=== PATIENT | male | born 1965 | race Caucasian/White ===

== ENCOUNTER → 2024-04-17 | Outpatient (CLI) | payer MEDICAID, SELFPAY | END | disposition home or self-care (01) | PROVIDERS: PCP Internal Medicine; Referring Provider Internal Medicine; Visit Provider Student in an Organized Health Care Education/Training Program | DX: L89.314 Pressure ulcer of right buttock, stage 4 (principal); L89.154 Pressure ulcer of sacral region, stage 4; S36.438A Laceration of other part of small intestine, initial encounter; X58.XXXA Exposure to other specified factors, initial encounter; G82.20 Paraplegia, unspecified | CPT/HCPCS: 11042; A9270 ==

== ENCOUNTER → 2024-05-29 | Outpatient (CLI) | payer MEDICAID, SELFPAY | END | disposition home or self-care (01) | PROVIDERS: PCP Internal Medicine; Referring Provider Internal Medicine; Visit Provider Surgery | DX: L89.154 Pressure ulcer of sacral region, stage 4 (principal); S36.438A Laceration of other part of small intestine, initial encounter; X58.XXXA Exposure to other specified factors, initial encounter; G82.20 Paraplegia, unspecified | CPT/HCPCS: 11042; A9270 ==

== ENCOUNTER → 2024-06-26 | Outpatient (CLI) | payer MEDICAID, SELFPAY | END | disposition home or self-care (01) | PROVIDERS: PCP Internal Medicine; Referring Provider Internal Medicine; Visit Provider Student in an Organized Health Care Education/Training Program | DX: L89.314 Pressure ulcer of right buttock, stage 4 (principal); L89.154 Pressure ulcer of sacral region, stage 4; S36.438A Laceration of other part of small intestine, initial encounter; X58.XXXA Exposure to other specified factors, initial encounter; G82.20 Paraplegia, unspecified | CPT/HCPCS: 97597; A9270 ==

== ENCOUNTER → 2024-07-24 | Outpatient (CLI) | payer MEDICAID, SELFPAY | END | disposition home or self-care (01) | LOC: SWHD 14:19 | PROVIDERS: PCP Internal Medicine; Referring Provider Internal Medicine; Visit Provider Surgery | DX: L89.314 Pressure ulcer of right buttock, stage 4 (principal); L89.154 Pressure ulcer of sacral region, stage 4; S36.438A Laceration of other part of small intestine, initial encounter; X58.XXXA Exposure to other specified factors, initial encounter; G82.20 Paraplegia, unspecified | CPT/HCPCS: 97597 ==

== ENCOUNTER → 2024-09-04 | Outpatient (CLI) | payer MEDICAID, SELFPAY | END | disposition home or self-care (01) | PROVIDERS: PCP Internal Medicine; Referring Provider Internal Medicine; Visit Provider Surgery | DX: L89.314 Pressure ulcer of right buttock, stage 4 (principal); L89.154 Pressure ulcer of sacral region, stage 4; S36.438A Laceration of other part of small intestine, initial encounter; X58.XXXA Exposure to other specified factors, initial encounter; G82.20 Paraplegia, unspecified | CPT/HCPCS: 11042 ==

== ENCOUNTER → 2024-09-25 | Outpatient (CLI) | payer MEDICAID, SELFPAY | END | disposition home or self-care (01) | PROVIDERS: PCP Internal Medicine; Referring Provider Internal Medicine; Visit Provider Student in an Organized Health Care Education/Training Program | DX: L89.314 Pressure ulcer of right buttock, stage 4 (principal); L89.154 Pressure ulcer of sacral region, stage 4; S36.438A Laceration of other part of small intestine, initial encounter; X58.XXXA Exposure to other specified factors, initial encounter; G82.20 Paraplegia, unspecified | CPT/HCPCS: 11042 ==

== ENCOUNTER → 2024-10-23 | Outpatient (CLI) | payer MEDICAID, SELFPAY | END | disposition home or self-care (01) | LOC: SWHD 14:21 | PROVIDERS: PCP Internal Medicine; Referring Provider Internal Medicine; Visit Provider Student in an Organized Health Care Education/Training Program | DX: L89.314 Pressure ulcer of right buttock, stage 4 (principal); L89.154 Pressure ulcer of sacral region, stage 4; S36.438A Laceration of other part of small intestine, initial encounter; X58.XXXA Exposure to other specified factors, initial encounter; G82.20 Paraplegia, unspecified; N19 Unspecified kidney failure; Z99.2 Dependence on renal dialysis | CPT/HCPCS: 11042 ==

== ENCOUNTER → 2024-11-20 | Outpatient (CLI) | payer MEDICAID, SELFPAY | END | disposition home or self-care (01) | LOC: SWHD 13:31 | PROVIDERS: PCP Internal Medicine; Referring Provider Internal Medicine; Visit Provider Student in an Organized Health Care Education/Training Program | DX: L89.314 Pressure ulcer of right buttock, stage 4 (principal); L89.154 Pressure ulcer of sacral region, stage 4; S36.438A Laceration of other part of small intestine, initial encounter; X58.XXXA Exposure to other specified factors, initial encounter; G82.20 Paraplegia, unspecified; N19 Unspecified kidney failure; Z99.2 Dependence on renal dialysis | CPT/HCPCS: 11042; A9270 ==

== ENCOUNTER → 2025-01-29 | Outpatient (CLI) | payer MEDICAID, SELFPAY | END | disposition home or self-care (01) | LOC: SWHD 14:38 | PROVIDERS: PCP Internal Medicine; Referring Provider Internal Medicine; Visit Provider Student in an Organized Health Care Education/Training Program | DX: L89.314 Pressure ulcer of right buttock, stage 4 (principal); L89.154 Pressure ulcer of sacral region, stage 4; S36.438A Laceration of other part of small intestine, initial encounter; X58.XXXA Exposure to other specified factors, initial encounter; G82.20 Paraplegia, unspecified; Z99.2 Dependence on renal dialysis; N19 Unspecified kidney failure | CPT/HCPCS: 11042; A9270 ==

== ENCOUNTER → 2025-02-26 | Outpatient (CLI) | payer MEDICAID, SELFPAY | END | disposition home or self-care (01) | LOC: SWHD 14:52 | PROVIDERS: PCP Internal Medicine; Referring Provider Internal Medicine; Visit Provider Student in an Organized Health Care Education/Training Program | DX: L89.314 Pressure ulcer of right buttock, stage 4 (principal); L89.154 Pressure ulcer of sacral region, stage 4; S36.438A Laceration of other part of small intestine, initial encounter; X58.XXXA Exposure to other specified factors, initial encounter; G82.20 Paraplegia, unspecified; N19 Unspecified kidney failure | CPT/HCPCS: 11042; A9270 ==

== ENCOUNTER → 2025-04-02 | Outpatient (CLI) | payer MEDICAID, SELFPAY | END | disposition home or self-care (01) | LOC: SWHD 15:15 | PROVIDERS: PCP Internal Medicine; Referring Provider Internal Medicine; Visit Provider Student in an Organized Health Care Education/Training Program | DX: L89.314 Pressure ulcer of right buttock, stage 4 (principal); L89.154 Pressure ulcer of sacral region, stage 4; S36.438A Laceration of other part of small intestine, initial encounter; X58.XXXA Exposure to other specified factors, initial encounter | CPT/HCPCS: 11042; 11045; A9270 ==

== ENCOUNTER → 2025-05-07 | Outpatient (CLI) | payer MEDICAID, SELFPAY | END | disposition home or self-care (01) | LOC: SWHD 14:45 | PROVIDERS: PCP Internal Medicine; Referring Provider Internal Medicine; Visit Provider Surgery | DX: L89.314 Pressure ulcer of right buttock, stage 4 (principal); L89.154 Pressure ulcer of sacral region, stage 4; S36.438A Laceration of other part of small intestine, initial encounter; X58.XXXA Exposure to other specified factors, initial encounter; G82.20 Paraplegia, unspecified | CPT/HCPCS: 97597; A9270 ==